=== PATIENT | female | born 1960 | race Caucasian/White ===

== ENCOUNTER 2018-06-23 07:35 | Day surgery (SDC) | payer OTHER ==
[~2018-06-23] VITALS: Ht 167.6 cm; Wt 55.0 kg
[~2018-06-23 07:35] MED LIST: ATOR20; BENADRYL25 MG PO; CHOLESTOFF PO; ESTR25VT PV; HYDACE5 PO; Nortriptyline H10 MG; PROM25 PO
[2018-06-23] MEDS ORDERED: BUPR150ER (08:00)
== END 2018-06-23 09:58 | disposition home or self-care (01) ==
LOC: ORSCSDS 07:35
PROVIDERS: Internal Medicine Gastroenterology
PROC: 0DBP8ZX Excision of Rectum, Via Natural or Artificial Opening Endoscopic, Diagnostic (ICD-10-PCS; principal; 2018-06-23 09:00)
PROC: 0DBN8ZX Excision of Sigmoid Colon, Via Natural or Artificial Opening Endoscopic, Diagnostic (ICD-10-PCS; principal; 2018-06-23 09:00)
DX: Z12.11 Encounter for screening for malignant neoplasm of colon (principal); K63.5 Polyp of colon; K62.1 Rectal polyp; F17.210 Nicotine dependence, cigarettes, uncomplicated; J43.9 Emphysema, unspecified; J45.909 Unspecified asthma, uncomplicated; Z79.899 Other long term (current) drug therapy
CPT/HCPCS: 88305; J0330; J1980; J2405; J7120

== ENCOUNTER 2019-06-18 12:24 | Day surgery (SDC) | payer OTHER ==
[~2019-06-18] VITALS: Ht 167.6 cm; Wt 55.7 kg
[~2019-06-18 12:24] MED LIST changes: +BUPR150ER
[2019-06-18] MEDS ORDERED: ROSU5 (13:15)
== END 2019-06-18 14:41 | disposition home or self-care (01) ==
LOC: ORSCSDS 12:24
PROVIDERS: Internal Medicine Gastroenterology
PROC: 0D757ZZ Dilation of Esophagus, Via Natural or Artificial Opening (ICD-10-PCS; principal; 2019-06-18 13:45)
PROC: 0DB38ZX Excision of Lower Esophagus, Via Natural or Artificial Opening Endoscopic, Diagnostic (ICD-10-PCS; principal; 2019-06-18 13:45)
PROC: 0DB18ZX Excision of Upper Esophagus, Via Natural or Artificial Opening Endoscopic, Diagnostic (ICD-10-PCS; principal; 2019-06-18 13:45)
PROC: 0D758ZZ Dilation of Esophagus, Via Natural or Artificial Opening Endoscopic (ICD-10-PCS; principal; 2019-06-18 13:45)
DX: R13.10 Dysphagia, unspecified (principal); K21.9 Gastro-esophageal reflux disease without esophagitis; F17.210 Nicotine dependence, cigarettes, uncomplicated; Z79.899 Other long term (current) drug therapy
CPT/HCPCS: 88305; J2704; J7120